=== PATIENT | female | born 1995 | race Caucasian/White ===

== ENCOUNTER → 2016-09-19 | Outpatient (CLI) | payer OTHER ==
[2016-09-19 11:45] LABS: Basophils # (A) 0.1 k/uL (0-0.2); Basophils % (A) 1 %; CHCM 34.1; Eosinophils # (A) 0.3 k/uL (0-0.7); Eosinophils % (A) 4 %; HDW 2.81; HGB 15.3 gm/dL (11.4-16.0); Luc # (Auto) 0.14; Luc % (Auto) 2; Lymphocytes # (A) 2.5 k/uL (1.0-4.8); Lymphocytes % (A) 35 %; MCH 30.4 pg (25.0-35.0); MCHC 33.3 g/dL (31.0-37.0); MCV 91.3 fL (80.0-100.0); Mean Platelet Volume 6.5; Monocytes # (A) 0.5 k/uL (0-1.0); Monocytes % (A) 7 %; Neutrophils # (A) 3.6 k/uL (1.3-7.7); Neutrophils % (A) 51 %; RBC 5.04 m/uL (3.80-5.40); RDW 12.8 % (11.5-15.5); WBC (Perox) 6.91
[2016-09-19 12:07] LABS: ALT 41 U/L (9-52); AST 23 U/L (14-36); Alkaline Phosphatase 83 U/L (38-126); Anion Gap 14 mmol/L; Blood Urea Nitrogen 12 mg/dL (7-17); Calcium 9.6 mg/dL (8.4-10.2); Carbon Dioxide 28 mmol/L (22-30); Chloride 104 mmol/L (98-107); Cholesterol 196 mg/dL (<200); Glucose 90 mg/dL (74-99); HDL Cholesterol 32 mg/dL (40-60); Non-African American GFR(MDRD) >60 (>60 ml/min/1.73 sqM); Potassium 4.4 mmol/L (3.5-5.1); Sodium 146 mmol/L (137-145); Total Bilirubin 0.7 mg/dL (0.2-1.3); Total Protein 7.8 g/dL (6.3-8.2); Triglycerides 210 mg/dL (<150)
== END | disposition home or self-care (01) ==
LOC: LABWHC1 10:57
PROVIDERS: ATTEND Family Medicine
DX: O24.419 Gestational diabetes mellitus in pregnancy, unspecified control (principal); Z3A.00 Weeks of gestation of pregnancy not specified
CPT/HCPCS: 36415; 80053; 80061; 84443; 85025

== ENCOUNTER → 2020-07-25 | Outpatient (CLI) | payer OTHER | END | disposition home or self-care (01) | LOC: LABWHC1 11:22 | PROVIDERS: ATTEND Family Medicine | DX: Z03.89 Encounter for observation for other suspected diseases and conditions ruled out (principal) | CPT/HCPCS: U0003; C9803 ==

== ENCOUNTER → 2022-01-17 | Outpatient (CLI) | payer OTHER ==
--- NOTE | 2022-01-18 07:14 | US ---
EXAMINATION TYPE: US pelvic complete DATE OF EXAM: 01/17/2022 COMPARISON: NONE CLINICAL HISTORY: E28.2 POLYCYSTIC OVARIAN SYNDROME. Has nexplanon control. Periods x 3 years ago. Patient states she has PCOS. TECHNIQUE: Transabdominal (TA). Transabdominal sonographic images of the pelvis were acquired. Date of LMP: 2018, EXAM MEASUREMENTS: Uterus: 8.2 x 3.6 x 3.5 cm Endometrial Stripe: 0.2 cm Right Ovary: 2.6 x 1.8 x 1.6 cm Left Ovary: 2.0 x 1.7 x 1.6 cm 1. Uterus: Anteverted wnl 2. Endometrium: wnl 3. Right Ovary: follicles seen 4. Left Ovary: follicles seen 5. Bilateral Adnexa: wnl 6. Posterior cul-de-sac: no free fluid IMPRESSION: A few tiny follicles noted bilaterally.
== END | disposition home or self-care (01) ==
LOC: RADUSWWP 16:11
PROVIDERS: ATTEND Family Medicine
DX: N83.02 Follicular cyst of left ovary (principal); N83.01 Follicular cyst of right ovary
CPT/HCPCS: 76856

== ENCOUNTER → 2022-01-18 | Outpatient (CLI) | payer OTHER ==
[2022-01-18 15:57] LABS: Chol/HDL Ratio 6.34 Ratio; Globulin 2.7 g/dL (1.6-3.3); LDL Cholesterol,Calculated 126.4 mg/dL (0.0-131.0)
[2022-01-18 15:58] LABS: ALT 34 U/L (8-44); AST 25 U/L (13-35); African American GFR (CKD) 136.2 (60.0-200.0); Albumin 4.5 g/dL (3.8-4.9); Albumin/Globulin Ratio 1.69 (1.60-3.17); Alkaline Phosphatase 100 U/L (41-126); Blood Urea Nitrogen 10.8 mg/dL (9.0-27.0); Calcium 9.3 mg/dL (8.7-10.3); Carbon Dioxide 25.3 mmol/L (20.0-27.5); Chloride 105 mmol/L (96-109); Glucose 102 mg/dL (70-110); Luteinizing Hormone 5.7 mIU/mL; Non-African American GFR(CKD) 117.5 (60.0-200.0); Potassium 4.1 mmol/L (3.5-5.5); Sodium 140 mmol/L (135-145); Total Protein 7.2 g/dL (6.2-8.2)
[2022-01-18 19:10] LABS: Basophils # (A) 0.04 X 10*3/uL (0.00-0.10); Basophils % (A) 0.4 %; Eosinophils # (A) 0.17 X 10*3/uL (0.04-0.35); Eosinophils % (A) 1.9 %; HCT 47.2 % (37.2-46.3); HGB 15.2 g/dL (12.0-15.0); Immature Grans, Automated 0.3 %; Lymphocytes # (A) 2.47 X 10*3/uL (0.90-5.00); Lymphocytes % (A) 27.7 %; MCHC 32.2 g/dL (32.0-37.0); MCV 93.1 fL (80.0-97.0); Mean Platelet Volume 9.6 fL (9.5-12.2); Monocytes # (A) 0.68 X 10*3/uL (0.20-1.00); Monocytes % (A) 7.6 %; NRBC Per 100 WBC 0 /100 WBCS (0.0-0.0); Neutrophils # (A) 5.53 X 10*3/uL (1.80-7.70); Neutrophils % (A) 62.1 %; Platelet Count 289 X 10*3/uL (140-440); RBC 5.07 X 10*6/uL (4.10-5.20); RDW 13.2 % (11.5-14.5); WBC 8.92 X 10*3/uL (4.50-10.00)
== END | disposition home or self-care (01) ==
LOC: LABWHC1 09:36
PROVIDERS: ATTEND Family Medicine
DX: N92.1 Excessive and frequent menstruation with irregular cycle (principal); Z86.32 Personal history of gestational diabetes; R45.86 Emotional lability; R63.5 Abnormal weight gain; L65.9 Nonscarring hair loss, unspecified
CPT/HCPCS: 36415; 80053; 80061; 83001; 83002; 83036; 84443; 85025

== ENCOUNTER → 2024-03-04 | Outpatient (CLI) | payer OTHER ==
[2024-03-04 19:15] LABS: Estradiol 33.8 pg/mL
[2024-03-04 19:26] LABS: Follicle Stimulating Hormone 3.3 mIU/mL; Luteinizing Hormone 3.2 mIU/mL; Progesterone 0.3 ng/mL; Prolactin 15.5 ng/mL (2.800-29.200)
== END | disposition home or self-care (01) ==
LOC: LABWHC1 11:51
PROVIDERS: ATTEND Obstetrics & Gynecology
DX: R89.1 Abnormal level of hormones in specimens from other organs, systems and tissues (principal)
CPT/HCPCS: 36415; 82306; 82627; 82670; 83001; 83002; 83498; 84144; 84146; 84436; 84443; 84481

== ENCOUNTER 2025-01-13 14:03 | Emergency (ER) | payer OTHER ==
--- NOTE | 2025-01-13 15:24 | ED ---
Abdominal Pain HPI - General Source: patient, RN notes reviewed Mode of arrival: wheelchair Limitations: no limitations <Aaron Vickers - Last Filed: 01/13/25 15:54> <Mari Torres - Last Filed: 01/13/25 22:47> - General Chief Complaint: Abdominal Pain Stated Complaint: Abd Pain/Post Op Time Seen by Provider: 01/13/25 14:48 - History of Present Illness Initial Comments: 30-year-old female presents emergency department with chief complaint of abdominal pain. Patient states that she was found to have ovarian mass several months ago did follow-up with her [facility]GER [facility] out of [place] in which they waited till January 05 to perform surgery she states that they attempted surgery but the mass grew in size and seem to spread. Patient did have biopsy at that time which cause increasing bleeding was sent to [facility] for admission and further evaluation. Patient states that she was observed there did discuss with with a [employer]LEMENT[employer] S[employer]ING TE[employer]ER oncology about follow-up outpatient if she has not had this appointment but she has been having increasing pain and now has developed fever. Patient denies any chest pain shortness of breath cough or cold-like symptoms. Patient states that she is having difficulty urinating difficulty with bowel movements. (Aaron Vickers) 30-year-old female no prior medical conditions any transfer for complaint of diffuse abdominal pain. Patient states that she made appoint with her projection engineer in October due to pelvic pain where she was found to have a ovarian mass that is scheduled for removal in December. Patient states that she underwent attempted laparoscopic removal on in [place], but the mass doubled in size to 18 cm for removal was unsuccessful and a biopsy was completed. Patient states that the biopsy continue to bleed where she was transferred to [facility] for evaluation for few nights and discharged late last week. Patient is scheduled for follow-up appointment with [facility] on 01/21/25 however is presenting for worsening pain and developed a fever this morning. States that she has been having difficulty with urination and experiencing suprapubic burning. (Mari Torres) - Related Data Previous Rx's Medication Instructions Recorded Cephalexin [Keflex] 500 mg PO Q6HR #40 cap 01/13/25 HYDROcodone/APAP 7.5-325MG [Martin 1 tab PO Q6HR PRN 3 Days #12 tab 01/13/25 7.5-325] Allergies Allergy/AdvReac Type Severity Reaction Status Date / Time No Known Allergies Allergy Verified 01/13/25 16:25 Review of Systems ROS Other: All systems not noted in ROS Statement are negative. <Aaron Vickers - Last Filed: 01/13/25 15:54> ROS Other: All systems not noted in ROS Statement are negative. <Mari Torres - Last Filed: 01/13/25 22:47> ROS Statement: Those systems with pertinent positive or pertinent negative responses have been documented in the HPI. Past Medical History Past Medical History: No Reported History Additional Past Medical History / Comment(s): insulin dependent gest diabetes. ovarian mass History of Any Multi-Drug Resistant Organisms: None Reported Past Surgical History: No Surgical Hx Reported, Orthopedic Surgery Past Anesthesia/Blood Transfusion Reactions: No Reported Reaction Past Psychological History: No Psychological Hx Reported, Depression Past Alcohol Use History: None Reported Past Drug Use History: None Reported - Past Family History Mother Family Medical History: Coronary Artery Disease (CAD), CVA/TIA <Aaron Vickers - Last Filed: 01/13/25 15:54> General Exam Limitations: no limitations General appearance: alert, in no apparent distress Head exam: Present: atraumatic, normocephalic, normal inspection Eye exam: Present: normal appearance, PERRL, EOMI. Absent: scleral icterus, conjunctival injection, periorbital swelling ENT exam: Present: normal exam, normal oropharynx, mucous membranes moist Neck exam: Present: normal inspection, full ROM. Absent: tenderness, meningismus, lymphadenopathy Respiratory exam: Present: normal lung sounds bilaterally. Absent: respiratory distress, wheezes, rales, rhonchi, stridor Cardiovascular Exam: Present: regular rate, normal rhythm, normal heart sounds. Absent: systolic murmur, diastolic murmur, rubs, gallop, clicks GI/Abdominal exam: Present: soft, distended, tenderness, normal bowel sounds. Absent: guarding, rebound, rigid Neurological exam: Present: alert <Aaron Vickers - Last Filed: 01/13/25 15:54> Course Vital Signs 01/13/25 01/13/25 01/13/25 14:10 16:01 19:55 Temperature 99.5 F Pulse Rate 120 H 105 H 101 H Respiratory 16 19 18 Rate Blood Pressure 116/75 120/80 113/79 O2 Sat by Pulse 96 98 97 Oximetry 01/13/25 21:37 Temperature 98.9 F Pulse Rate 104 H Respiratory 18 Rate Blood Pressure 129/87 O2 Sat by Pulse 97 Oximetry Medical Decision Making <Aaron Vickers - Last Filed: 01/13/25 15:54> - Lab Data Result diagrams: 01/13/25 16:40 01/13/25 16:40 <Mari Torres - Last Filed: 01/13/25 22:47> - Medical Decision Making Was pt. sent in by a medical professional or institution (, PA, SAMPLE COLOR MAKER, urgent care, hospital, or fci...) When possible be specific @ -[No] Did you speak to anyone other than the patient for history (EMS, parent, family, police, friend...)? What history was obtained from this source @ -[No] Did you review nursing and triage notes (agree or disagree)? Why? @ -[I reviewed and agree with nursing and triage notes] Were old charts reviewed (outside hosp., previous admission, EMS record, old EKG, old radiological studies, urgent care reports/EKG's, fci records)? Report findings @ -[No old charts were reviewed] Differential Diagnosis (chest pain, altered mental status, abdominal pain women, abdominal pain men, vaginal bleeding, weakness, fever, dyspnea, syncope, headache, dizziness, GI bleed, back pain, seizure, CVA, palpatations, mental health, musculoskeletal)? @ -Differential Abdominal Pain Women: Appendicitis, Cholecystitis, diverticulosis, ischemic bowel, pancreatitis, hepatitis, UTI, gastroenteritis, AAA, incarcerated hernia, bowel obstruction, constipation, inflammatory bowel, hepatitis, peptic ulcer disease, splenic infarction, perforated viscus, vulvitis, ovarian torsion, PID, kidney stone, placenta abruption, this is not meant to be an all-inclusive list EKG interpreted by me (3pts min.). @None X-rays interpreted by me (1pt min.). @ -[None done] CT interpreted by me (1pt min.). @ -Pending at time of signout U/S interpreted by me (1pt. min.). @ -[None done] What testing was considered but not performed or refused? (CT, X-rays, U/S, labs)? Why? @ -[None] What meds were considered but not given or refused? Why? @ -[None] Did you discuss the management of the patient with other professionals (professionals i.e. , LISETTE, SAMPLE COLOR MAKER, lab, RT, psych nurse, socially responsible investment adviser, liquor maker, teacher, natural resource officer, clinical case manager)? Give summary @ -[No] Was smoking cessation discussed for >3mins.? @ -[No] Was critical care preformed (if so, how long)? @ -[No] Were there social determinants of health that impacted care today? How? (Homelessness, low income, unemployed, alcoholism, drug addiction, transportation, low edu. Level, literacy, decrease access to med. care, mcc, rehab)? @ -[No] Was there de-escalation of care discussed even if they declined (Discuss DNR or withdrawal of care, Hospice)? DNR status @ -[No] What co-morbidities impacted this encounter? (DM, HTN, Smoking, COPD, CAD, Cancer, CVA, ARF, Chemo, Hep., AIDS, mental health diagnosis, sleep apnea, morbid obesity)? @ -[None] Was patient admitted / discharged? Hospital course, mention meds given and route, prescriptions, significant lab abnormalities, going to OR and other pertinent info. @ -Case signed out to Mari REINOSO (Aaron Vickers) 30-year-old female presenting to emergency department with abdominal pain. Patient signed out to me pending laboratory results, CT imaging and disposition. Laboratory testing reveals a hemoglobin of 8, hematocrit 25, no leukocytosis. Urinalysis is infected with epithelial cells however there is large leukocyte esterase with white blood cells and few bacteria. CT of the abdomen pelvis with IV contrast reveals a large complex mass arising from the pelvis likely ovarian origin with nodular thickening of the greater omentum with inflammatory changes adjacent to the splenic flexure with mild splenomegaly. Patient states she level is slightly elevated likely secondary to ovarian complex mass. Patient denies chance of . Patient is requesting discharge at this time stating that she will contact the rn quality onc that she is scheduled to follow up with next week. she is provided with prescription for pain management and antibiotics for UTI. urine is sent for culture. Attempted to assess records from [place], as patient did not recall what her hemoglobin was, however pending labs patient has requested discharge. case has been discussed with my attending, Dr. Ngo. ([facility]) - Lab Data Lab Results 01/13/25 01/13/25 01/13/25 Range/Units 16:40 16:40 16:40 WBC 9.12 (4.50-10.00) 10*3/uL RBC 2.96 L (4.10-5.20) 10*6/uL Hgb 8.0 L (12.0-15.0) g/dL Hct 25.0 L (37.2-46.3) % MCV 84.5 (80.0-97.0) fL MCH 27.0 (27.0-32.0) pg MCHC 32.0 (32.0-37.0) g/dL Plt Count 318 (140-440) 10*3/uL MPV 8.5 L (9.5-12.2) fL Immature Gran % (Auto) 3.5 % Neutrophils % 67.1 % Lymphocytes % 15.8 % Monocytes % 12.0 % Eosinophils % 1.2 % Basophils % 0.4 % Immature Gran # 0.32 H (0.00-0.04) 10*3/uL Neutrophils # 6.12 (1.80-7.70) 10*3/uL Lymphocytes # 1.44 (0.90-5.00) 10*3/uL Monocytes # 1.09 H (0.20-1.00) 10*3/uL Eosinophils # 0.11 (0.04-0.35) 10*3/uL Basophils # 0.04 (0.00-0.10) 10*3/uL Sodium 135 L (137-145) mmol/L Potassium 3.4 L (3.5-5.1) mmol/L Chloride 107 (98-107) mmol/L Carbon Dioxide 23 (22-30) mmol/L Anion Gap 5 mmol/L BUN 9 (7-17) mg/dL Creatinine 0.37 L (0.52-1.04) mg/dL Est GFR (CKD-EPI)AfAm >90 (>60 ml/min/1.73 sqM) Est GFR (CKD-EPI)NonAf >90 (>60 ml/min/1.73 sqM) Glucose 91 (74-99) mg/dL Calcium 6.7 L (8.4-10.2) mg/dL Total Bilirubin 1.4 H (0.2-1.3) mg/dL AST 46 H (14-36) U/L ALT 53 H (4-34) U/L Alkaline Phosphatase 178 H (38-126) U/L Total Protein 5.1 L (6.3-8.2) g/dL Albumin 2.3 L (3.5-5.0) g/dL Lipase 16 L (23-300) U/L HCG, Quant 31.9 mIU/mL Urine Color Urine Appearance (Clear) Urine pH (5.0-8.0) Ur Specific Ponce (1.001-1.035) Urine Protein (Negative) Urine Glucose (UA) (Negative) Urine Ketones (Negative) Urine Blood (Negative) Urine Nitrite (Negative) Urine Bilirubin (Negative) Urine Urobilinogen (<2.0) mg/dL Ur Leukocyte Esterase (Negative) Urine RBC (0-5) /hpf Urine WBC (0-5) /hpf Ur Squamous Epith Cells (0-4) /hpf Urine Bacteria (None) /hpf Urine Mucus (None) /hpf Urine HCG, Qual (Not Detectd) Blood Type Blood Type Recheck Bld Type Recheck Status Antibody Screen Spec Expiration Date 01/13/25 01/13/25 01/13/25 Range/Units 16:53 16:53 19:25 WBC (4.50-10.00) 10*3/uL RBC (4.10-5.20) 10*6/uL Hgb (12.0-15.0) g/dL Hct (37.2-46.3) % MCV (80.0-97.0) fL MCH (27.0-32.0) pg MCHC (32.0-37.0) g/dL Plt Count (140-440) 10*3/uL MPV (9.5-12.2) fL Immature Gran % (Auto) % Neutrophils % % Lymphocytes % % Monocytes % % Eosinophils % % Basophils % % Immature Gran # (0.00-0.04) 10*3/uL Neutrophils # (1.80-7.70) 10*3/uL Lymphocytes # (0.90-5.00) 10*3/uL Monocytes # (0.20-1.00) 10*3/uL Eosinophils # (0.04-0.35) 10*3/uL Basophils # (0.00-0.10) 10*3/uL Sodium (137-145) mmol/L Potassium (3.5-5.1) mmol/L Chloride (98-107) mmol/L Carbon Dioxide (22-30) mmol/L Anion Gap mmol/L BUN (7-17) mg/dL Creatinine (0.52-1.04) mg/dL Est GFR (CKD-EPI)AfAm (>60 ml/min/1.73 sqM) Est GFR (CKD-EPI)NonAf (>60 ml/min/1.73 sqM) Glucose (74-99) mg/dL Calcium (8.4-10.2) mg/dL Total Bilirubin (0.2-1.3) mg/dL AST (14-36) U/L ALT (4-34) U/L Alkaline Phosphatase (38-126) U/L Total Protein (6.3-8.2) g/dL Albumin (3.5-5.0) g/dL Lipase (23-300) U/L HCG, Quant mIU/mL Urine Color Yellow Urine Appearance Cloudy H (Clear) Urine pH 5.5 (5.0-8.0) Ur Specific Ponce 1.019 (1.001-1.035) Urine Protein Trace H (Negative) Urine Glucose (UA) Negative (Negative) Urine Ketones Negative (Negative) Urine Blood Small H (Negative) Urine Nitrite Negative (Negative) Urine Bilirubin 1+ H (Negative) Urine Urobilinogen 4.0 (<2.0) mg/dL Ur Leukocyte Esterase Large H (Negative) Urine RBC 6 H (0-5) /hpf Urine WBC 22 H (0-5) /hpf Ur Squamous Epith Cells 22 H (0-4) /hpf Urine Bacteria Few H (None) /hpf Urine Mucus Moderate H (None) /hpf Urine HCG, Qual Detected (Not Detectd) Blood Type O Positive Blood Type Recheck O Pos Bld Type Recheck Status No Antibody Screen NEGATIVE Spec Expiration Date 01/16/2025 - 2324 Disposition <Aaron Vickers - Last Filed: 01/13/25 15:54> Is patient prescribed a controlled substance at d/c from ED?: Yes When asked, does pt state using other controlled substances?: No If prescribed controlled substance>3 days was MAPS reviewed?: Prescribed <3 Days If Rx opioid, was Start Talking consent form obtained?: Yes Time of Disposition: 21:20 <Mari Torres - Last Filed: 01/13/25 22:47> Clinical Impression: Ovarian mass Disposition: HOME SELF-CARE Condition: Stable Additional Instructions: Please return to the Emergency Department if symptoms worsen or any other concerns. Prescriptions: Cephalexin [Keflex] 500 mg PO Q6HR #40 cap HYDROcodone/APAP 7.5-325MG [Martin 7.5-325] 1 tab PO Q6HR PRN 3 Days #12 tab PRN Reason: Severe Pain (Scale 7 To 10) Referrals: Shanda Morrell MD [Primary Care Provider] - 1-2 days
[2025-01-13] MEDS: SODIUM CHLORIDE 0.9% 1,000 ML IV ONE (15:58)
[2025-01-13] MEDS: ONDANSETRON 4 MG/2 ML VIAL IVP STA (16:31)
[2025-01-13] MEDS: HYDROmorphone 1 MG/ML 1 ML SYRINGE IVP STA ×2 (16:32→19:47)
[2025-01-13 16:48] LABS: Basophils # (A) 0.04 10*3/uL (0.00-0.10); Basophils % (A) 0.4 %; Eosinophils # (A) 0.11 10*3/uL (0.04-0.35); Eosinophils % (A) 1.2 %; Lymphocytes # (A) 1.44 10*3/uL (0.90-5.00); Lymphocytes % (A) 15.8 %; MCV 84.5 fL (80.0-97.0); Mean Platelet Volume 8.5 fL (9.5-12.2); Monocytes # (A) 1.09 10*3/uL (0.20-1.00); Neutrophils # (A) 6.12 10*3/uL (1.80-7.70); Neutrophils % (A) 67.1 %; Platelet Count 318 10*3/uL (140-440); RBC 2.96 10*6/uL (4.10-5.20); RDW 14.6 % (11.5-14.5); WBC 9.12 10*3/uL (4.50-10.00)
[2025-01-13 17:03] LABS: ALT 53 U/L (4-34); AST 46 U/L (14-36); African American GFR (CKD) >90 (>60 ml/min/1.73 sqM); Albumin 2.3 g/dL (3.5-5.0); Alkaline Phosphatase 178 U/L (38-126); Anion Gap 5 mmol/L; Blood Urea Nitrogen 9 mg/dL (7-17); Calcium 6.7 mg/dL (8.4-10.2); Carbon Dioxide 23 mmol/L (22-30); Chloride 107 mmol/L (98-107); Glucose 91 mg/dL (74-99); Lipase 16 U/L (23-300); Non-African American GFR(CKD) >90 (>60 ml/min/1.73 sqM); Potassium 3.4 mmol/L (3.5-5.1); Sodium 135 mmol/L (137-145); Total Bilirubin 1.4 mg/dL (0.2-1.3); Total Protein 5.1 g/dL (6.3-8.2)
[2025-01-13 17:04] LABS: Appearance,Urine Cloudy (Clear); Bacteria,Urine Few /hpf; Bilirubin,Urine 1+ (Negative); Blood,Urine Small (Negative); Color,Urine Yellow; Glucose,Urine (UA) Negative (Negative); Ketones,Urine Negative (Negative); Leukocyte Esterase,Urine Large (Negative); Mucus,Urine Moderate /hpf; Nitrite,Urine Negative (Negative); PH, Urine 5.5 (5.0-8.0); Protein,Urine Trace (Negative); RBC,Urine 6 /hpf (0-5); Specific Gravity,Urine 1.019 (1.001-1.035); Squamous Epithelial Cell,Urine 22 /hpf (0-4); WBC,Urine 22 /hpf (0-5)
--- NOTE | 2025-01-13 18:22 | CT ---
EXAMINATION TYPE: CT abdomen pelvis w con DATE OF EXAM: 01/13/2025 6:02 PM COMPARISON: None. CLINICAL INDICATION: Female, 30 years old with history of abdominal pain/fever/surgery, Hx of 18cm ov alejandra mass. Larproscopic surgery was attempted last Friday. Unable to remove it. Pt c/o pain, swel ling and fever. TECHNIQUE:CT scan of the abdomen and pelvis is performed without Oral Contrast and with IV Contrast, patient injected with 100 ml mL of Isovue 300. CT DLP: 1541.5 mGycm, Automated exposure control for dose reduction was used. FINDINGS: LUNG BASES-: No visible nodule. No infiltrate. LIVER/GB: No calcified gallstones. No space occupying hepatic lesion. Biliary tree is of normal ca liber. PANCREAS: No inflammation. No distinct mass. SPLEEN: Splenomegaly at 14 cm craniocaudal dimension with a small amount of perisplenic fluid. No les ion seen. ADRENALS: No nodule. No thickening. KIDNEYS/BLADDER: No hydronephrosis. No nephrolithiasis. No distinct renal mass. Urinary bladder g rossly unremarkable. BOWEL: Normal appendix. Normal bowel caliber. No inflammation. GENITAL ORGANS: There is a large complex mass arising from the pelvis which extends to the midline an d towards the left which measures 23 cm craniocaudal dimension by 24 cm in transverse dimension by 14 .1 cm AP dimension. I suspect neoplasm of ovarian origin. Malignancy is not excluded. There is nodula r thickening of the omentum. There is also thickening adjacent to the splenic flexure of the colon wh ich could reflect some invasion versus focal colitis. The uterus appears grossly unremarkable. LYMPH NODES: No greater than 1cm abdominal or pelvic lymph nodes are appreciated. AORTA: No significant abnormality. OSSEOUS STRUCTURES: No significant abnormality is seen. OTHER: No significant additional abnormality is seen. IMPRESSION: 1. Large complex mass arising from the pelvis felt to be of ovarian origin with nodular thickening of the greater omentum. Ovarian malignancy is difficult to exclude. 2. Some inflammatory change adjacent to the splenic flexure is of uncertain etiology. 3. Mild splenomegaly. [facility], , 01/13/2025 6:19 PM
[2025-01-13] MEDS: cefTRIAXone IN SWFI 1,000 MG/10 ML SYRINGE IVP STA (19:48)
[2025-01-13 19:57] VITALS: RESP 18
[2025-01-13 21:39] VITALS: BP 129/87; PULSE 104; TEMP 98.9
[2025-01-13] MEDS: ACET/COD 300 MG/30 MG STARTER PACK 6 TAB BTL PO STA (21:40)
== END 2025-01-13 21:54 | disposition home or self-care (01) ==
LOC: EC 14:03
DX: N83.9 Noninflammatory disorder of ovary, fallopian tube and broad ligament, unspecified (principal)
CPT/HCPCS: 36415; 86900; 86901; 80053; 83690; 85025; 86850; 81001; 81025; 84702; 87086; 74177; 99284; 96374; 96375; 96376; J2405; J0696; J1171; Q9967

== ENCOUNTER 2025-03-11 12:09 | Emergency (ER) | payer OTHER ==
--- NOTE | 2025-03-11 12:30 | ED ---
General Adult HPI - General Chief complaint: Recheck/Abnormal Lab/Rx Stated complaint: Abn Labs Time Seen by Provider: 03/11/25 12:24 Source: patient Mode of arrival: ambulatory Limitations: no limitations - History of Present Illness Initial comments: Dictation was produced using [employer] dictation software. please excuse any grammatical, word or spelling errors. Chief Complaint: 30-year-old female history of ovarian cancer presents to the emergency department for blood transfusion History of Present Illness: Patient 30-year-old female with recently diagnosed ovarian cancer. She is status post surgical removal of tumor. She is currently on chemotherapy. Had blood work drawn yesterday found to have anemia and hypokalemia. She was told by her oncology team to come to the emergency department for blood transfusion. She was told that she needs 2 units. Patient Nuys any black or bloody stools. Denies any headedness. No bleeding. The ROS documented in this emergency department record has been reviewed and confirmed by me. Those systems with pertinent positive or negative responses have been documented in the HPI. All other systems are other negative and/or noncontributory. - Related Data Previous Rx's Medication Instructions Recorded Cephalexin [Keflex] 500 mg PO Q6HR #40 cap 01/13/25 HYDROcodone/APAP 7.5-325MG [[place] 1 tab PO Q6HR PRN 3 Days #12 tab 01/13/25 7.5-325] Allergies Allergy/AdvReac Type Severity Reaction Status Date / Time No Known Allergies Allergy Verified 03/11/25 12:21 Review of Systems ROS Statement: Those systems with pertinent positive or pertinent negative responses have been documented in the HPI. ROS Other: All systems not noted in ROS Statement are negative. Past Medical History Past Medical History: No Reported History Additional Past Medical History / Comment(s): insulin dependent gest diabetes. ovarian mass History of Any Multi-Drug Resistant Organisms: None Reported Past Surgical History: No Surgical Hx Reported, Appendectomy, Hysterectomy, Orthopedic Surgery Additional Past Surgical History / Comment(s): tumor removed Past Anesthesia/Blood Transfusion Reactions: No Reported Reaction Past Psychological History: No Psychological Hx Reported, Depression Smoking Status: Former smoker Past Alcohol Use History: None Reported Past Drug Use History: None Reported - Past Family History Mother Family Medical History: Coronary Artery Disease (CAD), CVA/TIA General Exam - General Exam Comments Initial Comments: General: Well-appearing, nontoxic, no acute distress. Head: Normocephalic, atraumatic Eyes: PERRLA, EOMI ENT: Airway patent Chest: Nonlabored breathing Skin: No visual rash, normal skin tone Neuro: Alert and oriented 3 Musculoskeletal: No gross abnormalities Limitations: no limitations Course Vital Signs 03/11/25 12:17 Temperature 98.6 F Pulse Rate 96 Respiratory 20 Rate Blood Pressure 116/79 O2 Sat by Pulse 100 Oximetry Medical Decision Making - Medical Decision Making Was pt. sent in by a medical professional or institution (, PA, PLANT ACCOUNTANT, urgent care, hospital, or long term...) When possible be specific @ -No Did you speak to anyone other than the patient for history (EMS, parent, family, police, friend...)? What history was obtained from this source @ -No Did you review nursing and triage notes (agree or disagree)? Why? @ -I reviewed and agree with nursing and triage notes Were old charts reviewed (outside hosp., previous admission, EMS record, old EKG, old radiological studies, urgent care reports/EKG's, long term records)? Report findings @ -No old charts were reviewed Differential Diagnosis (chest pain, altered mental status, abdominal pain women, abdominal pain men, vaginal bleeding, musculoskeletal, weakness, fever, dyspnea, syncope, headache, dizziness, GI bleed, back pain, seizure, CVA, palpatations, mental health)? @ -Not applicable EKG interpreted by me (3pts min.). @ -None done X-rays interpreted by me (1pt min.). @ -None done CT interpreted by me (1pt min.). @ -None done U/S interpreted by me (1pt. min.). @ -None done What testing was considered but not performed or refused? (CT, X-rays, U/S, labs)? Why? @ -None What meds were considered but not given or refused? Why? @ -None Was smoking cessation discussed for >3mins.? @ -No Were there social determinants of health that impacted care today? How? (H omelessness, low income, unemployed, alcoholism, drug addiction, transportation, low edu. Level, literacy, decrease access to med. care, penitentiary, rehab)? @ -No Was there de-escalation of care discussed even if they declined (Discuss DNR or withdrawal of care, Hospice)? DNR status @ -No What co-morbidities impacted this encounter? (DM, HTN, Smoking, COPD, CAD, Cancer, CVA, ARF, Chemo, Hep., AIDS, mental health diagnosis, sleep apnea, morbid obesity)? @ -Ovarian cancer Was patient admitted / discharged? Hospital course, mention meds given and route, prescriptions, significant lab abnormalities, going to OR and other pertinent info. @ -30-year-old female presents to the emergency department requesting 2 units of blood transfusion so that patient can get chemotherapy for her ovarian cancer treatment. Vital signs are stable. Patient well-appearing denies any symptoms of anemia. Laboratory evaluation obtained. Hemoglobin 8.2. Rest of labs unremarkable. Patient referred to units transfusion will be discharged. Did you discuss the management of the patient with other professionals (pr ofessionals i.e. , PA, PLANT ACCOUNTANT, lab, RT, psych nurse, social media community manager, etcher apprentice photoengraving, teacher, port patrol officer, case management specialist)? Give summary @ -No Was critical care preformed (if so, how long)? @ -No Undiagnosed new problem with uncertain prognosis? @ -No Drug Therapy requiring intensive monitoring for toxicity (Heparin, Nitro, Insulin, Cardizem)? @ -No Were any procedures done? @ -No Diagnosis/symptom? Acute, or Chronic, or Acute on Chronic? Uncomplicated (without systemic symptoms) or Complicated (systemic symptoms)? @ -Anemia Side effects of treatment? @ -No Exacerbation, Progression, or Severe Exacerbation? @ -No Poses a threat to life or bodily function? How? (Chest pain, [place], NH, pneumonia, PE, COPD, DKA, ARF, appy, cholecystitis, CVA, Diverticulitis, Homicidal, Suicidal, threat to staff... and all critical care pts) @ -No - Lab Data Result diagrams: 03/11/25 13:22 03/11/25 13:22 Lab Results 03/11/25 03/11/25 03/11/25 Range/Units 13:22 13:22 13:22 WBC 7.00 (4.50-10.00) 10*3/uL RBC 2.94 L (4.10-5.20) 10*6/uL Hgb 8.2 L (12.0-15.0) g/dL Hct 23.9 L (37.2-46.3) % MCV 81.3 (80.0-97.0) fL MCH 27.9 (27.0-32.0) pg MCHC 34.3 (32.0-37.0) g/dL Plt Count 299 (140-440) 10*3/uL MPV 8.8 L (9.5-12.2) fL Immature Gran % (Auto) 17.4 % Neutrophils % (Manual) 47 % Band Neuts % (Manual) 7 % Lymphocytes % (Manual) 34 % Monocytes % (Manual) 7 % Eosinophils % (Manual) 1 % Metamyelocytes % 5 % Myelocytes % 2 % Immature Gran # 1.22 H (0.00-0.04) 10*3/uL Neutrophils # (Manual) 3.78 (1.3-7.7) k/uL Lymphocytes # (Manual) 2.38 (1.0-4.8) k/uL Monocytes # (Manual) 0.49 (0-1.0) k/uL Eosinophils # (Manual) 0.07 (0-0.7) k/uL Metamyelocytes # (Man) 0.35 H (0) k/uL Myelocytes # (Manual) 0.14 H (0) k/uL Nucleated RBCs 1 H (0-0) /100 WBC Manual Slide Review Performed RBC Morphology Normal Sodium 138 (137-145) mmol/L Potassium 3.2 L (3.5-5.1) mmol/L Chloride 96 L (98-107) mmol/L Carbon Dioxide 34 H (22-30) mmol/L Anion Gap 8 mmol/L BUN 5 L (7-17) mg/dL Creatinine 0.48 L (0.52-1.04) mg/dL Est GFR (CKD-EPI)AfAm >90 (>60 ml/min/1.73 sqM) Est GFR (CKD-EPI)NonAf >90 (>60 ml/min/1.73 sqM) Glucose 94 (74-99) mg/dL Calcium 8.6 (8.4-10.2) mg/dL Blood Type O Positive Blood Type Recheck O Pos Bld Type Recheck Status No Antibody Screen NEGATIVE Crossmatch See Detail Spec Expiration Date 03/14/20252321 Disposition Clinical Impression: Anemia Disposition: HOME SELF-CARE Condition: Fair Is patient prescribed a controlled substance at d/c from ED?: No Referrals: Shanda Morrell MD [Primary Care Provider] - 1-2 days Time of Disposition: 18:05
[2025-03-11 13:42] LABS: African American GFR (CKD) >90 (>60 ml/min/1.73 sqM); Anion Gap 8 mmol/L; Blood Urea Nitrogen 5 mg/dL (7-17); Calcium 8.6 mg/dL (8.4-10.2); Carbon Dioxide 34 mmol/L (22-30); Chloride 96 mmol/L (98-107); Glucose 94 mg/dL (74-99); Non-African American GFR(CKD) >90 (>60 ml/min/1.73 sqM); Potassium 3.2 mmol/L (3.5-5.1); Sodium 138 mmol/L (137-145)
[2025-03-11 13:52] LABS: HCT 23.9 % (37.2-46.3); HGB 8.2 g/dL (12.0-15.0); MCH 27.9 pg (27.0-32.0); MCHC 34.3 g/dL (32.0-37.0); MCV 81.3 fL (80.0-97.0); Mean Platelet Volume 8.8 fL (9.5-12.2); Platelet Count 299 10*3/uL (140-440); RBC 2.94 10*6/uL (4.10-5.20); RDW 15.3 % (11.5-14.5)
[2025-03-11 15:15] LABS: Neutrophils % (M) 47 %
[2025-03-11 15:16] LABS: Band Neutrophils % 7 %; Eosinophils # (M) 0.07 k/uL (0-0.7); Lymphocytes # (M) 2.38 k/uL (1.0-4.8); Metamyelocytes # (M) 0.35 k/uL (0); Metamyelocytes % 5 %; Monocytes # (M) 0.49 k/uL (0-1.0); Myelocytes # (M) 0.14 k/uL (0); Myelocytes % 2 %; Neutrophils # (M) 3.78 k/uL (1.3-7.7); Nucleated Red Blood Cells 1 /100 WBC (0-0); Total Cells Counted 200
[2025-03-11 15:20] LABS: RBC Morphology Normal
[2025-03-11 20:52] VITALS: RESP 16
[2025-03-12 03:35] VITALS: BP 116/80; PULSE 90; TEMP 97.9
== END 2025-03-12 03:39 | disposition home or self-care (01) ==
LOC: EC 12:09
DX: D64.9 Anemia, unspecified (principal); C56.9 Malignant neoplasm of unspecified ovary; Z87.891 Personal history of nicotine dependence
CPT/HCPCS: 36415; 86900; 86901; 80048; 85025; 86850; 86920; 99283; 36430; P9016

== ENCOUNTER → 2025-03-12 | Outpatient (CLI) | payer OTHER ==
[2025-03-12 11:12] LABS: HCT 32.9 % (37.2-46.3); HGB 10.7 g/dL (12.0-15.0); MCH 27.9 pg (27.0-32.0); MCHC 32.5 g/dL (32.0-37.0); MCV 85.9 fL (80.0-97.0); Mean Platelet Volume 8.5 fL (9.5-12.2); Platelet Count 278 10*3/uL (140-440); RBC 3.83 10*6/uL (4.10-5.20); RDW 16.5 % (11.5-14.5); WBC 5.19 10*3/uL (4.50-10.00)
[2025-03-12 11:45] LABS: Spherocytes Present; Stomatocytes Present
[2025-03-12 12:00] LABS: Band Neutrophils % 2 %; Eosinophils # (M) 0.05 k/uL (0-0.7); Lymphocytes # (M) 2.34 k/uL (1.0-4.8); Metamyelocytes # (M) 0.05 k/uL (0); Metamyelocytes % 1 %; Monocytes # (M) 0.31 k/uL (0-1.0); Myelocytes % 2 %; Neutrophils # (M) 2.43 k/uL (1.3-7.7); Neutrophils % (M) 45 %; Nucleated Red Blood Cells 1 /100 WBC (0-0); Total Cells Counted 200
== END | disposition home or self-care (01) ==
LOC: LABWHC1 10:53
PROVIDERS: ATTEND Obstetrics & Gynecology Gynecologic Oncology
DX: C56.2 Malignant neoplasm of left ovary (principal); R19.00 Intra-abdominal and pelvic swelling, mass and lump, unspecified site; F17.208 Nicotine dependence, unspecified, with other nicotine-induced disorders
CPT/HCPCS: 36415; 85025

== ENCOUNTER → 2025-04-02 | Outpatient (CLI) | payer OTHER ==
[2025-04-02 11:42] LABS: HCT 31.0 % (37.2-46.3); HGB 10.4 g/dL (12.0-15.0); MCH 28.3 pg (27.0-32.0); MCHC 33.5 g/dL (32.0-37.0); MCV 84.5 fL (80.0-97.0); Platelet Count 324 10*3/uL (140-440); RBC 3.67 10*6/uL (4.10-5.20); RDW 18.3 % (11.5-14.5); WBC 19.85 10*3/uL (4.50-10.00)
[2025-04-02 12:33] LABS: Lymphocytes # (M) 3.57 k/uL (1.0-4.8); Monocytes # (M) 2.38 k/uL (0-1.0); Neutrophils # (M) 13.89 k/uL (1.3-7.7); Neutrophils % (M) 66 %; Total Cells Counted 100
[2025-04-02 12:34] LABS: Anisocytosis (M) Present
== END | disposition home or self-care (01) ==
LOC: LABWHC1 11:18
PROVIDERS: ATTEND Obstetrics & Gynecology Gynecologic Oncology
DX: R19.00 Intra-abdominal and pelvic swelling, mass and lump, unspecified site (principal); C56.2 Malignant neoplasm of left ovary; F17.208 Nicotine dependence, unspecified, with other nicotine-induced disorders
CPT/HCPCS: 36415; 85025